=== PATIENT | female | born 2005 | race Caucasian/White ===

== ENCOUNTER → 2023-10-13 | Emergency (ER) | payer SELFPAY ==
[~2023-10-13] VITALS: Ht 154.9 cm; Wt 83.9 kg
[2023-10-13 11:40] VITALS: BP_SYST 117; PULSE 73; RESP 19; TEMP 98; O2SAT 99
== END ==
LOC: SED 11:37
DX: Z02.89 Encounter for other administrative examinations (principal); R10.84 Generalized abdominal pain; M25.561 Pain in right knee; Z79.899 Other long term (current) drug therapy
CPT/HCPCS: 99283